=== PATIENT | male | born 1955 | race Caucasian/White ===

== ENCOUNTER 2025-02-04 06:07 | Inpatient (IN) | payer MEDICARE, OTHER ==
[~2025-02-04] VITALS: Ht 170.2 cm; Wt 98.4 kg
[2025-02-04] MEDS ORDERED: VANCOMYCIN 1 GM VIAL ONE (06:30)
[2025-02-04] MEDS ORDERED: LIDOCAINE 2%-EPI 1:100,000 30 ML VIAL ONE (06:30)
[2025-02-04] MEDS ORDERED: dexaMETHasone SOD PHOSPHATE 2 ML ONE (06:30)
[2025-02-04] MEDS ORDERED: ANESTHESIA TRAY IN PYXIS 1 EA TRAY MC ONE (06:30)
[2025-02-04] MEDS ORDERED: OXYMETAZOLINE HCL NASAL SPRAY 30 ML BOTTLE NS ONE (07:23)
[2025-02-04] MEDS ORDERED: FENTANYL PF 250MCG/5ML AMPUL ONE (07:26)
[2025-02-04] MEDS ORDERED: ROCURONIUM BROMIDE 50 MG/5 ML ONE (07:26)
[2025-02-04] MEDS ORDERED: LABETALOL HCL IV 100MG VIAL ONE (08:06)
[2025-02-04 12:00] VITALS: BP_SYST 126; BP_SYST 139; BP_DIAS 61; BP_DIAS 77; TEMP 97.3; TEMP 97.7; O2SAT 94; O2SAT 97
[2025-02-04] MEDS ORDERED: ONDANSETRON HCL/PF 4 MG/2 ML VIAL IVP PRN (13:00)
[2025-02-04] MEDS ORDERED: ACETAMINOPHEN 325 MG TABLET PO PRN (13:00)
[2025-02-04] MEDS ORDERED: MAGNESIUM HYDROXIDE 30 ML UDC PO PRN (13:00)
[2025-02-04] MEDS ORDERED: Z GUARD REMEDY 4 OZ OINT TP PRN (13:00)
[2025-02-04 16:00] VITALS: BP 126/77; TEMP 97.3; O2SAT 94
[2025-02-04] MEDS ORDERED: HYDROMORPHONE 1 MG/1 ML DISP.SYRIN IV PRN (18:00)
[2025-02-04] MEDS: IV NS 0.9% 1,000 ML IV PRN (18:52)
[2025-02-04] MEDS: VANCOMYCIN 1 GM in IV D5W 250ml IV SCH (19:45)
[2025-02-04 20:00] VITALS: BP 115/72; TEMP 98.2; O2SAT 92
[2025-02-04] MEDS: HYDROCODONE/APAP 5/325MG TABLET PO PRN (21:05)
[2025-02-05 07:32] LABS: PLATELET COUNT (AUTO) 140 K/uL (150-450); RED BLOOD CELL COUNT(AUTO) 4.59 MIL/uL (4.5-6.0); RED CELL DISTRIBUTION WIDTH 14.1 % (11.5-15.0); WHITE BLOOD COUNT (AUTO) 11.7 K/uL (4.3-11.0)
[2025-02-05 07:49] LABS: CALCIUM, SERUM 8.8 mg/dL (8.5-10.1); CREATININE 1.0 mg/dL (0.6-1.3); PHOSPHORUS 3.2 mg/dL (2.5-4.9); SODIUM SERUM 142.0 mmol/L (136-145); UREA NITROGEN, BLOOD 12.0 mg/dL (7-18)
[2025-02-05 08:26] VITALS: BP 122/58; TEMP 97.5; O2SAT 96
[2025-02-05] MEDS: PANTOPRAZOLE 40 MG TABLET.DR PO SCH (09:30)
[2025-02-05] MEDS ORDERED: HYDR-3972 PO (11:03)
== END 2025-02-05 13:00 | disposition home or self-care (01) | DRG 142 ==
LOC: DS 06:07 → MED 10:22
PROVIDERS: ADMIT Nurse Practitioner Family; ATTEND Nurse Practitioner Family
PROC: 0NSV04Z Reposition Left Mandible with Internal Fixation Device, Open Approach (ICD-10-PCS; 2025-02-04)
PROC: 0NUV07Z Supplement Left Mandible with Autologous Tissue Substitute, Open Approach (ICD-10-PCS; 2025-02-04)
PROC: 0NSR0ZZ Reposition Maxilla, Open Approach (ICD-10-PCS; 2025-02-04)
PROC: 09UQ07Z Supplement Right Maxillary Sinus with Autologous Tissue Substitute, Open Approach (ICD-10-PCS; 2025-02-04)
PROC: 0N5V0ZZ Destruction of Left Mandible, Open Approach (ICD-10-PCS; 2025-02-04)
PROC: 09BQ0ZZ Excision of Right Maxillary Sinus, Open Approach (ICD-10-PCS; principal; 2025-02-04 07:30)
DX: S02.40CA Maxillary fracture, right side, initial encounter for closed fracture (principal); M27.2 Inflammatory conditions of jaws; S02.609A Fracture of mandible, unspecified, initial encounter for closed fracture; E78.5 Hyperlipidemia, unspecified; I10 Essential (primary) hypertension; X58.XXXA Exposure to other specified factors, initial encounter; Y92.9 Unspecified place or not applicable; Z90.49 Acquired absence of other specified parts of digestive tract; J32.9 Chronic sinusitis, unspecified; M27.40 Unspecified cyst of jaw
CPT/HCPCS: 36415; 80048-TC; 83735-TC; 84100-TC; 85025-TC; A4217; A4223; A4338; C1713; G0378; J0330; J1100; J1644; J2704; J3010; J3373; J3490; J7030; J7060